=== PATIENT | female | born 1940 ===

== ENCOUNTER → 2021-06-03 08:28 | Outpatient (BNVA) | payer MEDICARE, SELFPAY | PROVIDERS: Visit Provider Psychiatry & Neurology Neurology | DX: G25.0 Essential tremor (principal); G24.3 Spasmodic torticollis | CPT/HCPCS: Q3014 ==

== ENCOUNTER → 2021-09-05 13:08 | Outpatient (BNVA) | payer MEDICARE, BC, SELFPAY | PROVIDERS: Visit Provider Psychiatry & Neurology Neurology | DX: G25.0 Essential tremor (principal); G24.3 Spasmodic torticollis; Z79.899 Other long term (current) drug therapy | CPT/HCPCS: 99212 ==

== ENCOUNTER → 2021-11-19 13:35 | Outpatient (BNVA) | payer MEDICARE, BC, SELFPAY | PROVIDERS: Visit Provider Psychiatry & Neurology Neurology | DX: G24.3 Spasmodic torticollis (principal); G25.0 Essential tremor | CPT/HCPCS: 64616; 99211; J0585 ==

== ENCOUNTER → 2022-07-01 15:28 | Outpatient (BNVA) | payer MEDICARE, BC, SELFPAY | PROVIDERS: Visit Provider Psychiatry & Neurology Neurology | DX: G25.0 Essential tremor (principal); G24.3 Spasmodic torticollis | CPT/HCPCS: 99212 ==

== ENCOUNTER 2022-12-30 14:34 | Outpatient (AMB) | payer MEDICARE, BC, SELFPAY ==
--- NOTE | 2022-12-30 14:34 | MHC.OFFVIS ---
Intake Intake Visit Reasons: 6m follow up-confirmed Intake Note: Pt is foing telehealth visit for her 6 month follow up for tremors. SHe reports her symptoms are unchanged. [employer] Required: No Allergies Sulfa (Sulfonamide Antibiotics) Allergy (Mild, Verified 12/30/22 14:36) Blister erythromycin base Allergy (Verified 12/30/22 14:36) Abdominal Pain Medication List - Last Reconciled 12/30/22 by Lindsey Gonzalez MD acetaminophen (Tylenol) 325 mg PO QID PRN ascorbic acid (vitamin C) 250 mg PO DAILY atorvastatin mg PO BEDTIME diphenhydramine HCl (Benadryl Allergy) 25 mg PO BEDTIME PRN duloxetine mg PO ferrous sulfate 325 mg PO DAILY fluticasone propionate 50 mcg/actuation intranasal gabapentin mg PO TID hydrochlorothiazide mg PO DAILY hydroxyzine HCl mg PO TID ipratropium-albuterol 0.5 mg-3 mg(2.5 mg base)/3 mL 3 mL inhalation Q6H PRN loperamide mg PO Q6H PRN mesalamine ER grams PO montelukast 10 mg PO BEDTIME pantoprazole mg PO primidone 250 mg PO TID tiotropium-olodaterol 2.5-2.5 mcg/actuation (Stiolto Respimat) 2 puffs inhalation DAILY HPI HPI Comments History of Present Illness Details 82 year-old female calls for severe head and voice tremors. she reports shoulder pain and back pain. she was tried on botox in Nov 2021 she did not see a response but it is also expensive for her so she stopped.she has a lot of GI issues which bothers her the most. She is on primidone 250 t.i.d. for her tremors which is helping mildly and she is also on gabapentin 100 mg 3 times a day. She was tried on zonisamide in the past but she developed a rash. She still reports neck stiffness and pain.she wants to retry zonisamide as she thinks her rash is was due to something else. The head tremors and voice tremors does not bother her. [facility]LY [facility] Medical History Spasmodic torticollis Benign essential tremor GERD (gastroesophageal reflux disease) Diabetes Hyperlipidemia HTN (hypertension) COPD (chronic obstructive pulmonary disease) Asthma Anemia C. difficile colitis Surgical History Hx of lumpectomy Family History Father Pancreatic cancer Mother Dementia Social History Household Members: None Alcohol intake: current Alcohol intake frequency: does not drink Patient Tobacco Use Status: Former Tobacco user Quit Date: >40 years ago Current occupational status: retired Physical Exam Const Other: voice tremors Assessment & Plan Assessment & Plan (1) Benign essential tremor: Code(s): G25.0 - Essential tremor (2) Spasmodic torticollis: Code(s): G24.3 - Spasmodic torticollis Plan I will continue primidone 250mg 3 times a day and gabapentin 3 times a day Tremors in her head and voice does not impact her ADLS - i will continue same and follow up clincially. I will trial her on topiramate 25mg bid Medications: New topiramate 25 mg PO BID 60 tabs 6RF Telehealth Telehealth Location of provider rendering services: practice address Location of patient: address on file Patient Identification confirmed using: Name, : Yes Telehealth method: voice only Patient verbally consented to treatment: Yes Patient verbally consented to billing insurance company: Yes Patient informed of any privacy concerns related to visit: Yes Coding Level of Care Code Tele Est Pt Level 3 (90300) Diagnoses Benign essential tremor G25.0 Spasmodic torticollis G24.3 Time Spent (min) 16
== END 2022-12-30 16:00 ==
PROVIDERS: Visit Provider Psychiatry & Neurology Neurology
DX: G25.0 Essential tremor (principal); G24.3 Spasmodic torticollis
CPT/HCPCS: 99442

== ENCOUNTER → 2022-12-30 14:34 | Outpatient (BNVA) | payer MEDICARE, BC, SELFPAY | PROVIDERS: Visit Provider Psychiatry & Neurology Neurology | DX: G25.0 Essential tremor (principal); G24.3 Spasmodic torticollis ==